=== PATIENT | female | born 1960 | race Caucasian/White ===

== ENCOUNTER 2016-10-09 07:51 | Inpatient (IN) | payer MEDICARE, MEDICAID ==
[~2016-10-09] VITALS: Ht 127 cm; Wt 36.2 kg
--- NOTE | 2016-10-10 14:17 | CO ---
ADMIT: 10/09/2016 RM/LOC: 313 [facility] MR#: [id number] [address] [place], [place] [address] DARREN ZHOU I [address] [place] [address] Consultation SEX: F AGE: 55 : 1960 DATE OF CONSULTATION: 10/09/2016 ATTENDING PHYSICIAN: Robert Molina CONSULTING PHYSICIAN: Mahi Wilkins APRN TIME IN: 1300 hours. TIME OUT: 1345 hours. REASON FOR CONSULTATION: Supportive care consultation was requested by Dr. Molina for discussion of goals for care. HISTORY OF PRESENT ILLNESS: Mrs. Zhou is a 55-year-old, female with a history of Down syndrome. She is deaf and also nonverbal. She does have a history of aspiration as well. She presented to the emergency room today with decreased level of consciousness and weakness. She was found to have pneumonia and is being treated for sepsis. She remains in the ICU. Initially she is a full code at the time of assessment. However, the patient's guardian did have a discussion with Dr. Molina and directed that she become a do not resuscitate/do not intubate status. Due to her multiple complexities, supportive care consultation was requested to discuss goals for care. In terms of advanced directives, the patient is now a do not resuscitate/do not intubate status. The patient does have a guardian, Parish Patton whose phone #[phone]. She does not have a living will or POLST form on file. Symptomatically, the patient appears comfortable. She is weak and debilitated. PAST MEDICAL HISTORY: Down syndrome, aspiration, hypothyroidism, constipation, seizure disorder, and deafness. PAST SURGICAL HISTORY: None. ALLERGIES: THE PATIENT IS ALLERGIC TO CODEINE AND ATROPINE DROPS. CURRENT MEDICATIONS: Please see the patient's MAR for specific routes and dosages. Her current medications are as follows. 1. Rocephin. 2. Nitro-Bid. 3. Levophed. 4. Tylenol. 5. Nitrostat. 6. DuoNeb. 7. Zithromax. SOCIAL HISTORY: The patient lives with her guardian's mother. They are not ADMIT: 10/09/2016 RM/LOC: 313 [facility] MR#: [id number] [address] [address] DARREN ZHOU I [address] [place] [address] Consultation SEX: F AGE: 55 : 1960 related. She does not use alcohol, drugs, or tobacco. 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 FAMILY HISTORY: Unable to obtain due to the patient's mental status. FUNCTIONAL REVIEW: Prior to her hospital stay, she was living at home. She could ambulate, but was getting weaker. She required considerable assistance with ADLs. Her palliative performance scale prior to admission was at 50% to 60%. Currently, she is in bed. She is total care. Her intake is reduced. She is drowsy. Her current palliative performance scale score is 30%. REVIEW OF SYSTEMS: A 10-point review of systems was attempted. However, due to the patient's mentation, this is unable to be obtained. PHYSICAL EXAMINATION: GENERAL: The patient is examined in the bed. She is in no acute distress. VITAL SIGNS: Temperature 97.7, pulse 96, respirations 32, blood pressure 95/42, and oxygen 95% on room air. HEENT: Head is normocephalic. Pupils are 2 mm bilaterally and brisk. Oral mucosa pink and moist with fair dentition. NECK: Supple. RESPIRATORY: Respirations are equal and nonlabored bilaterally. LUNGS: Diminished in the bases. CARDIOVASCULAR: She is tachycardic. No edema noted. GASTROINTESTINAL: Soft and nontender. Bowel sounds are positive. MUSCULOSKELETAL: Generalized weakness. INTEGUMENTARY: Skin turgor is fair. No rashes or wounds noted. NEUROLOGIC: She is nonverbal. She is deaf. She does not follow commands. PSYCHIATRIC: Calm. No agitation noted. DIAGNOSTIC DATA: Sodium 146, potassium 3.5, BUN 19, creatinine 1.0, total protein 6.3, albumin 1.8. WBC is 32.8, hemoglobin 10.7, hematocrit 32.5, and platelets 385. Procalcitonin 11.06 and lactic acid 2.6. IMPRESSION: 1. Physical debility. 2. Down syndrome. 3. Lethargy. 4. Fatigue. 5. Severe protein-calorie malnutrition. 6. Malaise. 7. Aspiration history. 8. Pneumonia. 9. Sepsis. 10.Seizure disorder. 11.Palliative care. 12.The patient is a do not resuscitate/do not intubate. ADMIT: 10/09/2016 RM/LOC: 313 [facility] MR#: [id number] [id number] [address] DARREN ZHOU I [facility] [address] [place] [address] Consultation SEX: F AGE: 55 : 1960 PLAN: 1. At the time of assessment, the patient is obviously unable to participate in medical decision making. Therefore, I did meet with her guardian Erin at the bedside. We reviewed the patient's overall status and goals for the time ahead. The patient's guardian is very realistic stating that the patient has been declining as of recently. She is aware that she may not do well in the time ahead. At this point, she is okay with our current treatment including antibiotics and pressor support. However, she is very clear that she wants the patient to be a do not resuscitate/do not intubate status. She is not even sure if she would pursue BiPAP therapy if it came to this. She states that if the patient declines further interventions that she is prepared to focus on comfort only. She states that the patient has had a very long and good life and that she does not want to prolong the patient living in a status of poor quality of life. She does agree to ongoing discussions with supportive care in the time ahead pending the patient's status. 2. The patient's guardian is also aware that we will need to discuss long- term goals pending how she does with her acute issues. She does verbalize that they have been looking into potential placement options for the patient including [facility]. We will continue to discuss this in the time ahead. We would like to thank Dr. Molina for the invitation to participate in this patient's care. Total consultation time was 45 minutes from 1300 hours to 1345 hours with 20 minutes from 1310 hours to 1330 spent [id number] with the patient or her guardian discussing goals for care and providing counseling and support. Mahi Wilkins APRN/ alan JOB #: [id number] CC: Robert Molina, Attending Physician Robert Molina, Family Physician
--- NOTE | 2016-10-14 21:34 | ER ---
ADMIT: 10/09/2016 RM/LOC: ER [facility] MR#: [id number] [address] [place], [place] [address] GUANAKITODARREN FORMAN Luke [address] [place] [address] Emergency Room Report SEX: F AGE: 55 : 1960 DATE: 10/09/2016 SUBJECTIVE: A 55-year-old, severely MR, deaf, nonverbal patient brought in by caregiver because of increasing weakness and lethargy over the past 24 to 48 hours. Apparently, she has become increasingly weak. Subsequently, brought in for evaluation. She has had a cough that has been nonproductive. The patient is unable to provide any complaints or history. PHYSICAL EXAMINATION: GENERAL: Reveals a frail-appearing, 55-year-old, with a contusion over the right orbit LUNGS: Diminished breath sounds throughout secondary to poor effort. CARDIOVASCULAR: No murmur. Tachycardia is noted. ABDOMEN: Appears soft. EXTREMITIES: No clubbing, cyanosis, or edema. EMERGENCY ROOM COURSE: Sepsis workup was initiated. Chest x-ray revealed right lower lobe infiltrate and some mild failure. White count was 32,000. Lactic acid 2.6. Sodium 146, potassium 3.5. The patient is being admitted with pneumonia. Rocephin was begun in the Emergency Department. Tutu Willard MD/ alan JOB #: [id number] CC: Tutu Willard MD, Attending Physician Robert Molina MD, Family Physician
[2016-10-19] MEDS ORDERED: ECOTRIN81 MG PO (07:51)
[2016-10-19] MEDS ORDERED: SYNTHROID DPS0.05 MG PO (07:53)
[2016-10-19] MEDS ORDERED: KEPPRA DPS500 MG PO (07:53)
[2016-10-19] MEDS ORDERED: K-SOL20 MEQ/15 PO (07:53)
[2016-10-19] MEDS ORDERED: KEPPRA DPS250 MG PO (07:53)
[2016-10-19] MEDS ORDERED: PERIDEX15 ML PO (07:53)
[2016-10-19] MEDS ORDERED: TYLENOL DPS325 MG PO (07:54)
[2016-10-19] MEDS ORDERED: DUONEB DPS3 ML IH (07:54)
[2016-10-19] MEDS ORDERED: ATIVAN-DPS1 MG PO (07:55)
[2016-10-19] MEDS ORDERED: DIAZEPAM GEL PR (07:56)
[2016-10-19] MEDS ORDERED: AUGMENTIN 875-1 EACH PO (07:58)
--- NOTE | 2016-11-12 15:48 | HP ---
ADMIT: 10/09/2016 RM/LOC: 313 [facility] MR#: [id number] [address] [address] DARREN ZHOU I [address] [place], [place] [address] History and Physical SEX: F AGE: 55 : 1960 DATE OF SERVICE: REASON FOR ADMISSION: Mental status change, cough, and lethargy. HISTORY OF PRESENT ILLNESS: This is a 55-year-old white female with severe mental disability and Down's syndrome, who has recurrent aspiration. She was okay yesterday and went to bed just fine. Her caregiver got her up this morning to get her dressed to go to work and usually she will stand her against the wall to help support while she is getting her dressed. She could not get her stand against the wall, she was too weak, kind of lowered to the floor, got her back up, called her daughter for help, and they felt that she had significant change, she was lethargic, she was coughing, she was less interactive, she had high fever, therefore, she was transferred to emergency room it do reveal that she has right lower lobe pneumonia, therefore, she is being admitted for further workup and stabilization. Her guardian does report that she has had increased difficulty ambulation over the last week or a week and a half where she was leaning forward a lot while trying to ambulate. She has not had any recent falls. PAST MEDICAL HISTORY: Remarkable for: 1. Down's syndrome. 2. Alzheimer's type dementia. 3. Recurrent aspiration pneumonia. 4. Hypothyroidism. 5. Constipation. 6. Seizure disorder. PAST SURGICAL HISTORY: None. CURRENT MEDICATIONS: Include: 1. Aspirin 81 mg daily. 2. Peridex 15 mL by mouth b.i.d. 3. Ensure one can b.i.d. 4. Keppra 500 mg in the morning, 250 mg at bedtime. 5. Levothyroxine 50 mcg daily. 6. Thickened liquids. 7. Diastat p.r.n. 8. Lorazepam p.r.n. ALLERGIES: CODEINE AND ATROPINE. SOCIAL HISTORY: She does not smoke. Does not drink. She lives with her guardian, mother. Not aware of any family significant involvement. FAMILY HISTORY: Unobtainable secondary to her mental status. REVIEW OF SYSTEMS: Unobtainable secondary to her mental status. PHYSICAL EXAMINATION: VITAL SIGNS: Blood pressure currently is 88/42, pulse ADMIT: 10/09/2016 RM/LOC: 313 [facility] MR#: [id number] [id number] [place], [place] [address] [facility] [address] [place] [address] History and Physical SEX: F AGE: 55 : 1960 99, respirations 28, temp is now 97.3. GENERAL: She is in no acute distress. She is alert. She does not communicate. HEENT: Pupils are reactive. Conjunctivae are clear. Dry mucous membranes. NECK: Soft and supple. LUNGS: Decreased breath sounds. HEART: Regular. ABDOMEN: Soft. It is nontender. EXTREMITIES: No cyanosis, no clubbing, no edema. SKIN: No rashes. LABORATORY AND X-RAY DATA: Chest x-ray does show right lower lobe opacity. INR is 1.23. Lactic acid is 2.6. Sodium 143, potassium 3.5, chloride 110, CO2 of 27, BUN 19, creatinine 1.0, glucose 117, calcium 7.8, phosphorus 2.5, total bilirubin is 0.3, total protein 6.3, albumin 1.8, alkaline phosphatase 98, AST 20, ALT 24, magnesium 2.6, CK 30, MB less than 0.5, relative index less than 1.7. Troponin I less than 0.15. UA positive nitrite. White count 32,800, hemoglobin 10.7, platelets 385,000. ASSESSMENT: 1. Sepsis. 2. Right lower lobe pneumonia. 3. Down's syndrome. 4. Alzheimer's type dementia. 5. Seizure disorder. 6. Hypothyroidism. PLAN: We will admit to the ICU. We did discuss code status with the guardian and her other caregiver. They initially wished that she be a full code, however, after further discussion, they are in agreement to make her DNR/DNI. We will still get supportive care involved. We have started IV antibiotics, breathing treatments, and we will start pressors if need be to maintain pressure. We will aggressively hydrate. Overall status is critical. Total critical time spent on the patient was 1 hour. Robert Molina MD/ alan JOB #: [id number] CC: Robert Molina, Attending Physician Robert Molina, Family Physician
--- NOTE | 2017-01-01 10:20 | DS ---
ADMIT: 10/09/2016 RM/LOC: 509 [facility] MR#: [id number] [address] [address] [place] [address] General Discharge Summary SEX: F AGE: 55 : 1960 ADMISSION DATE: 10/09/2016 DISCHARGE DATE: 10/17/2016 FINAL DIAGNOSIS: 1. Right lower lobe pneumonia secondary to aspiration. 2. Down syndrome. 3. Severe sepsis. 4. Alzheimer's dementia. 5. Seizure disorder. 6. Hypokalemia. 7. Malnutrition. REASON FOR ADMISSION: This is a 55-year-old white female with Down syndrome and end-stage Alzheimer's type dementia who presented to the emergency room with sepsis, respiratory difficulties, was diagnosed with aspiration pneumonia. Therefore, was admitted for further workup and stabilization. HOSPITAL COURSE: Was admitted on 10/09/2016 to the ICU, started on IV normal saline, Rocephin, Zithromax, Levophed drip, DuoNeb treatments. We did continue her DNR/DNI status. Supportive care consult was obtained. They confirmed her DNR/DNI status. Initially there was a speech therapy consult, but we did cancel that because we know that she is unknown aspirator. She was placed back on a pureed diet and nectar thickened liquid per her caregivers request. We did IV Vancomycin, discontinued her Rocephin, and started on Zosyn on 10/10/2016. Her potassium was also low, so we replaced this IV. On 10/11/2016, her potassium was still low; again, replaced it IV. She was transferred from the ICU to telemetry. Enoxaparin was used for DVT prophylaxis. On 10/12/2016, her potassium was increasing but still low, so we did replace this orally and again through the IV. Her respiratory status continued to improve. We did have Social Work working on placement for the possibility of getting her in to [facility]. PT and OT were consulted on 10/13/2016. We decreased her IV fluids to 50 mL/h, and we stopped her IV Vancomycin. Her potassium was still low; again, replaced orally and IV. On 10/13/2016, her potassium had improved to 4.0. Her chest x-ray looked a little worse than the day previous, so we did decide to continue IV antibiotics. On 10/15/2016, she had an okay night with little change. On 10/16/2016, she had a good day yesterday. She was eating a bit. There were no setbacks. We did change her Keppra back to p.o. On 10/17/2016, she had an okay night. No new issues, and she was felt stable for [facility]. DISCHARGE INSTRUCTIONS: 1. Aspirin 81 mg daily. 2. KCl 40 mEq b.i.d. 3. Keppra 500 mg daily and 250 mg at bedtime. ADMIT: 10/09/2016 RM/LOC: 509 [facility] MR#: [id number] [address] [address] [place] [address] General Discharge Summary SEX: F AGE: 55 : 1960 4. Peridex 15 mL, swish b.i.d. 5. Synthroid 0.05 mg daily. 6. DuoNeb treatment q.i.d. 7. Tylenol 325 mg 2 tabs q.4 hours p.r.n. 8. DuoNeb treatment q.2 hours p.r.n. 9. Diazepam gel 12.5 mg p.r.n. seizure. 10.Lorazepam 1 mg p.r.n. seizure. 11.Augmentin 875 mg p.o. b.i.d. x5 days. PT, OT and Speech Therapy to follow. Pureed diet. DNR/DNI status. No hospital transfer per family's request, and follow up with Dr. Molina in 1 week, sooner if needed. Robert Molina MD/ mariely JOB #: [id number] CC: Robert Molina MD, Attending Physician Robert Molina MD, Family Physician
== END 2016-10-17 10:40 | DRG 871 ==
LOC: ER 07:51 → 3ICU 10:00 → 5MS 10:00 → 3ICU 18:34 → 5MS 10-11 12:12
PROVIDERS: ADMIT Family Medicine
DX: A41.9 Sepsis, unspecified organism (principal); R65.21 Severe sepsis with septic shock; J69.0 Pneumonitis due to inhalation of food and vomit; E43 Unspecified severe protein-calorie malnutrition; F72 Severe intellectual disabilities; G30.9 Alzheimer's disease, unspecified; F02.80 Dementia in other diseases classified elsewhere, unspecified severity, without behavioral disturbance, psychotic disturbance, mood disturbance, and anxiety; N39.0 Urinary tract infection, site not specified; B96.20 Unspecified Escherichia coli [E. coli] as the cause of diseases classified elsewhere; E87.6 Hypokalemia; H91.3 Deaf nonspeaking, not elsewhere classified; Q90.9 Down syndrome, unspecified; E03.9 Hypothyroidism, unspecified; K59.00 Constipation, unspecified; G40.909 Epilepsy, unspecified, not intractable, without status epilepticus; Z79.82 Long term (current) use of aspirin; Z66 Do not resuscitate